=== PATIENT | female | born 1935 ===

== ENCOUNTER → 2020-05-27 | Outpatient (CLI) | payer MEDICARE | LOC: PLD 07:30 → LAB SHORT 07:30 → LAB 07:30 | DX: D48.5 Neoplasm of uncertain behavior of skin (principal) | CPT/HCPCS: 88341; 88342 ==

== ENCOUNTER → 2020-06-25 | Outpatient (CLI) | payer MEDICARE | LOC: LAB 18:22 → LAB SHORT 18:22 | DX: L08.9 Local infection of the skin and subcutaneous tissue, unspecified (principal) | CPT/HCPCS: 87070; 87077; 87186; 87205 ==